=== PATIENT | male | born 1970 | race Caucasian/White ===

== ENCOUNTER 2017-07-06 21:17 | Emergency (ER) | payer BC ==
[2017-07-06 21:28] VITALS: BP 130/81; BMI 24.3
--- NOTE | 2017-07-06 21:43 | DR.GENAD ---
HPI - PCP Primary Care Physician: JULES - HPI Comment HPI Comment: GETTING WORSE. NO BM FOR 2 DAYS BUT HAD ONE BEFORE COMING. PAIN WAS IN THE FLANK AREA BUT IS NOW GOING TO RIGHT ABDOMEN. FELT FEVERISH AT HOME. NO DYSURIA OR HEMATURIA. - Complaint/Symptoms Chief Complaint Doctors Comments: RIGHT FLANK PAIN FOR 3 DAYS NOW RADIATING TO RIGHT LOWER ABDOMEN. Chief Complaint:: RIGHT SIDE PAIN COMES AND GOES GOTTEN WORSE TODAY, UNABLE TO HAVE BOWEL MOVEMENT X 2 DAYS NOT NORMAL PER PATIENT USUALLY BM DAILY. Self Treatment fo Chief Complaint: GAS X. PEPTO - Nurses notes reviewed Nurses Notes Review: Yes - Source History Provided: Patient - Mode of Arrival Mode of Arrival: Ambulatory - Timing Onset of Chief Complaint: 07/04/17 Came on: Suddenly - Duration Duration: Constant Duration: Days - Severity Severity: Moderate PMH - PMH Past Medical History: No Past Medical History: GERD Past Surgical History: Yes Past Surgical History Comment: ESOPHAGUS DILATED - Family History History of Family Medical Conditions: Yes Family Medical History: Diabetes Mellitus, Cancer, Heart Failure - Social History Does patient currently use any type of tobacco product: Yes (DIP) Have you used tobacco products in the last 12 months: Yes Type of Tobacco Use: DIP How many years tobacco product used: 30 Does any household member use tobacco: No Alcohol Use: Occasionally Do you use any recreational Drugs:: No Lives With: Spouse Lives Where: Home - infectious screening In the last 2 months have you had wt loss of >10#?: NO Have you had fever, night sweats or hemotysis?: No Have you traveled outside the country in the last 6 months?: No Isolation: Standard ROS - Review of Systems Constitutional: Fever Eyes: No Symptoms Reported ENTM: No Symptoms Reported. negative: Ear Pain, Nose Discharge, Nose Congestion , Throat Pain Respiratoy: No Symptoms Reported. negative: Productive Cough, Non-Productive Cough, Short of Breath, Wheezing, Hemoptysis Cardiovascular: No Symptoms Reported Gastrointestinal/Abdominal: Abdominal Pain (RT ABDOMEN.) Genitourinary: Pain (RT FLANK PAIN.). negative: Dysuria, Frequency, Hematuria Neurological: No Symptoms Reported Musculoskeletal: Back Pain (RT FLANK PAIN) Integumentary: No Symptoms Reported Hematologic/Lymphatic: No Symptoms Reported Endocrine: No Symptoms Reported All Other Systems: Reviewed and Negative PE - Vital Signs Vitals: Temperature 98.1 F Pulse Rate 93 Respiratory Rate 24 Blood Pressure 130/81 O2 Sat by Pulse Oximetry 95 - General Limitations: No Limitations General Appearance: Alert - Head Head Exam: Normal Inspection - Eyes Eye exam: Normal Appearance - ENT ENT Exam: Normal External Ear Exam External Ear Exam: Normal External Inspection TM/Canal Exam: Bilateral Normal Nose Exam: Normal Nose Exam Mouth Exam: Normal Inspection Throat Exam: Normal Inspection - Neck Neck Exam: Trachea Midline - Chest Chest Inspection: Symmetric Chest Wall Rise - Respiratory Respiratory Exam: Normal Lung Sounds Bilat Respiratory Exam: Bilateral Clear to Auscultation - Cardiovascular Cardiovascular Exam: Regular Rate, Normal Rhythm, Normal Heart Sounds - Abdominal Exam Abdominal Exam: Normal Bowel Sounds, Soft, Tenderness Abdominal Tenderness: RLQ - Extremities Extremities Exam: Normal Inspection - Back Back Exam: (R) CVA Tenderness - Neurologic Neurological Exam: Alert, Oriented X3 - Psychiatric Psychiatric Exam: Normal Affect, Normal Mood - Skin Skin Exam: Normal Color MDM - Additional Information Additional Information Obtained From: Family - Differential Diagnosis Differential Diagnosis: UTI, KIDNEY STONE, ABDOMINAL PAIN Course - Treatment Treatment: SEE ORDERS. - Education/Counseling Education/Counseling: Patient, Family, Education Educated On: Treatment, Diagnosis, Needs for Follow Up ROR - Labs Reviewed Laboratory Results Reviewed?: Yes Result Diagrams: 07/06/17 22:30 07/06/17 22:30 Laboratory: WBC 12.9 X10^3/uL (3.6-10.0) H 07/06/17 22:30 RBC 5.03 X10^6/uL (4.7-6.0) 07/06/17 22:30 Hgb 15.6 g/dL (13.5-18.0) 07/06/17 22:30 Hct 43.8 % (42.0-54.0) 07/06/17 22:30 MCV 87.0 fL (80.0-100.0) 07/06/17 22:30 MCH 30.9 pg (27.0-34.0) 07/06/17 22:30 MCHC 35.5 g/dL (33.0-35.0) H 07/06/17 22:30 RDW 12.4 % (11.6-16.5) 07/06/17 22:30 Plt Count 195 X10^3/uL (150.0-450.0) 07/06/17 22:30 MPV 7.7 fL (7.4-11.0) 07/06/17 22:30 Neut % (Auto) 86.6 % (42.0-75.0) H 07/06/17 22:30 Lymph % (Auto) 7.8 % (21.0-51.0) L 07/06/17 22:30 [place] % (Auto) 5.0 % (0.0-13.0) 07/06/17 22:30 Eos % (Auto) 0.3 % (0.9-2.9) L 07/06/17 22:30 Baso % (Auto) 0.3 % (0.2-1.0) 07/06/17 22:30 Neut # (Auto) 11.1 x10^3/uL (2.2-4.8) H 07/06/17 22:30 Lymph # (Auto) 1.0 X10^3/uL (1.3-2.9) L 07/06/17 22:30 [place] # (Auto) 0.6 x10^3/uL (0.3-0.8) 07/06/17 22:30 Eos # (Auto) 0.0 x10^3/uL (0.0-0.2) 07/06/17 22:30 Baso # (Auto) 0.0 X10^3/uL (0.0-0.1) 07/06/17 22:30 Absolute Nucleated RBC 0.1 /100WBC 07/06/17 22:30 Sodium 139 mmol/L (136-145) 07/06/17 22:30 Corrected Sodium 140 mmol/L (136-145) 07/06/17 22:30 Potassium 3.8 mmol/L (3.5-5.1) 07/06/17 22:30 Chloride 105 mmol/L (98-107) 07/06/17 22:30 Carbon Dioxide 24.2 mmol/L (21-32) 07/06/17 22:30 BUN 14 mg/dL (7-18) 07/06/17 22:30 Creatinine 1.07 mg/dL (0.70-1.30) 07/06/17 22:30 Est GFR (MDRD) Af Amer > 60 (>60) 07/06/17 22:30 Est GFR (MDRD) Non-Af > 60 (>60) 07/06/17 22:30 Glucose 161 mg/dL (65-99) H 07/06/17 22:30 Calcium 8.6 mg/dL (8.5-10.1) 07/06/17 22:30 Corrected Calcium TNP 07/06/17 22:30 Total Bilirubin 0.70 mg/dL (0.2-1.0) 07/06/17 22:30 AST 20 Units/L (15-37) 07/06/17 22:30 ALT 27 Units/L (12-78) 07/06/17 22:30 Alkaline Phosphatase 98 Units/L (46-116) 07/06/17 22:30 Total Protein 7.9 g/dL (6.4-8.2) 07/06/17 22: Albumin 4.3 g/dL (3.4-5.0) 07/06/17 22:30 Globulin 3.6 g/dL (2.5-4.5) 07/06/17 22:30 Albumin/Globulin Ratio 1.2 Ratio (1.1-2.1) 07/06/17 22:30 Amylase 46 Units/L (25-115) 07/06/17 22:30 Lipase 116 Units/L (73-393) 07/06/17 22:30 Specimen Type Clean catch urine 07/06/17 22:21 Urine Color Yellow (YELLOW) 07/06/17 22:21 Urine Appearance Slightly hazy (CLEAR) 07/06/17 22:21 Urine pH 5.0 (5.0 - 8.0) 07/06/17 22: Ur Specific [place] 1.025 (1.000-1.030) 07/06/17 22:21 Urine Protein 2+ (NEGATIVE) 07/06/17 22: Urine Glucose (UA) Negative (NEGATIVE) 07/06/17 22: Urine Ketones 2+ (NEGATIVE) 07/06/17 22: Urine Occult Blood 4+ (NEGATIVE) 07/06/17 22: Urine Nitrite Negative (NEGATIVE) 07/06/17 22: Urine Bilirubin Negative (NEGATIVE) 07/06/17 22:21 Urine Urobilinogen Normal (NORMAL) 07/06/17 22:21 Ur Leukocyte Esterase 1+ (NEGATIVE) 07/06/17 22:21 Urine RBC 10-20 /HPF (NONE SEEN) 07/06/17 22:21 Urine WBC 0-2 /HPF (NONE SEEN) 07/06/17 22:21 Ur Squamous Epith Cells Few /HPF (NEGATIVE) 07/06/17 22:21 Urine Bacteria Trace /HPF (NEGATIVE) 07/06/17 22:21 Urine Mucus Moderate /HPF (NEGATIVE) 07/06/17 22:21 Ur Culture Indicated? No/not indicated 07/06/17 22:21 - XRAY XRAY Interpreted by: Radiologist XRAY Findings: REPORT DISCUSS WITH PATIENT. - Diagnosis Discharge Problem: Kidney stone on right side, Right flank pain - Discharge Plan Disposition: HOME, SELF-CARE Condition: Stable Prescriptions: Tamsulosin HCl [Flomax] 0.4 mg PO DAILY PRN #10 cap PRN Reason: Tramadol HCl 50 mg PO Q8H PRN #15 tablet PRN Reason: - Follow ups/Referrals Follow ups/Referrals: Jacoby Paiz [Primary Care Provider] - 3 days NEELIMA MONROY [CONSULTING PHYSICIAN] - 07/07/17 - Instructions Instructions: Kidney Stones, [id number], Flank Pain, Adult, [id number] Additional Instructions: RETURN TO ED IF WORSE.
[2017-07-06 22:36] LABS: BILIRUBIN,URINE NEGATIVE (NEGATIVE); BLOOD/HEMOGLOBIN,URINE 4+ (NEGATIVE); GLUCOSE, URINE NEGATIVE (NEGATIVE); KETONES,URINE 2+ (NEGATIVE); LEUKOCYTE ESTERASE ,URINE 1+ (NEGATIVE); NITRITES,URINE NEGATIVE (NEGATIVE); PROTEIN,URINE 2+ (NEGATIVE); UROBILINOGEN,URINE NORMAL (NORMAL)
[2017-07-06 22:48] LABS: APPEARANCE,URINE SLIGHTLY HAZY (CLEAR); COLOR,URINE YELLOW (YELLOW)
[2017-07-06 22:50] LABS: BACTERIA,URINE TRACE /HPF (NEGATIVE); MUCUS,URINE MODERATE /HPF (NEGATIVE); SQUAMOUS EPITHELIAL CELL,UR FEW /HPF (NEGATIVE)
[2017-07-06 22:54] LABS: BASOPHILS % (AUTO) 0.3 % (0.2-1.0); EOSINOPHILS % (AUTO) 0.3 % (0.9-2.9); HEMATOCRIT 43.8 % (42.0-54.0); HEMOGLOBIN 15.6 g/dL (13.5-18.0); LYMPHOCYTES % (AUTO) 7.8 % (21.0-51.0); MEAN CORPUSCULAR HEMOGLOBIN 30.9 pg (27.0-34.0); MEAN CORPUSCULAR HGB CONC 35.5 g/dL (33.0-35.0); MEAN PLATELET VOLUME 7.7 fL (7.4-11.0); MONOCYTES # (AUTO) 0.6 x10^3/uL (0.3-0.8); NEUTROPHILS # (AUTO) 11.1 x10^3/uL (2.2-4.8); NEUTROPHILS % (AUTO) 86.6 % (42.0-75.0); PLATELET COUNT 195 X10^3/uL (150.0-450.0); RED BLOOD COUNT 5.03 X10^6/uL (4.7-6.0); RED CELL DISTRIBUTION WIDTH 12.4 % (11.6-16.5); WHITE BLOOD COUNT 12.9 X10^3/uL (3.6-10.0)
[2017-07-06 23:02] LABS: ALANINE AMINOTRANSFERASE 27 Units/L (12-78); ALBUMIN 4.3 g/dL (3.4-5.0); ALKALINE PHOSPHATASE 98 Units/L (46-116); AMYLASE 46 Units/L (25-115); ASPARTATE AMINO TRANSFERASE 20 Units/L (15-37); BLOOD UREA NITROGEN 14 mg/dL (7-18); CALCIUM 8.6 mg/dL (8.5-10.1); CARBON DIOXIDE 24.2 mmol/L (21-32); CHLORIDE 105 mmol/L (98-107); COR NA(FOR HYPERGLY) 140 mmol/L (136-145); CREATININE 1.07 mg/dL (0.70-1.30); LIPASE 116 Units/L (73-393); SODIUM 139 mmol/L (136-145); TOTAL PROTEIN 7.9 g/dL (6.4-8.2); eGFR BLACK RACES > 60 (>60); eGFR NON BLACK RACES > 60 (>60)
--- NOTE | 2017-07-06 23:08 | CT ---
CT abdomen and pelvis without contrast Indication: Right flank pain Technique: Helical images through the abdomen and pelvis without contrast. Coronal and sagittal refor mats provided. Findings: Limited images through the lower chest shows no acute abnormality. Review of bone windows s hows mild spine degenerative change. Abdomen: The gallbladder, liver, spleen, pancreas, adrenal glands, stomach and small bowel are normal . There is no acute colonic abnormality. The appendix is normal. Vasculature is free of plaque. The l eft kidney is normal. There is mild right hydroureteronephrosis with stone in the proximal right uret er near the ureteropelvic junction. This is best seen on axial image 38 and coronal image 25, measuri ng maximally 5 mm. Pelvis: The urinary bladder, rectum and prostate gland are normal. Impression: 1. Mild right hydroureteronephrosis with stone in the proximal right ureter near the ureterovesical j unction. 2. No other acute abnormality. Reported By:
[2017-07-06] MEDS ORDERED: ULTRAM PO ONE (23:34)
[2017-07-06] MEDS ORDERED: FLOMAX PO ONE (23:35)
[2017-07-06] MEDS ORDERED: TORADOL 60 MG VIAL IM ONE (23:38)
[2017-07-06] MEDS ORDERED: TORADOL 60 MG VIAL ONE (23:42)
[2017-07-06] MEDS ORDERED: ULTRAM ONE (23:43)
== END 2017-07-07 00:08 | disposition home or self-care (01) ==
LOC: ER 21:31
DX: N28.9 Disorder of kidney and ureter, unspecified (principal); R10.84 Generalized abdominal pain
CPT/HCPCS: 36415; 74176; 80053; 81001; 82150; 83690; 85025; 96372; 99283; 99284; J1885

== ENCOUNTER 2017-07-10 15:25 | Emergency (ER) | payer BC ==
[2017-07-10 15:33] VITALS: BP 131/83; BMI 24.3
[2017-07-10] MEDS ORDERED: NS 1000 ML 1,000 ML IV ONE (16:26)
--- NOTE | 2017-07-10 16:26 | DR.GENAD ---
HPI - PCP Primary Care Physician: DR. VICENTE - Complaint/Symptoms Chief Complaint Doctors Comments: Patient was diagnosed with a 5mm ureteropelvic junction stone associated with mild right hydroureteronephrosis with stone in the proximal right ureter near the ureterovesical junction. He was given flomax and analgesic and advised to follow up with primary care physician Chief Complaint:: PT STATES "WE CAME ON 07/06 AND I WAS DIAGNOSED WITH A KIDNEY STONE. I HAVE TRIED EVERYTHING AND IT STILL HASN'T PASSED" - Source History Provided: Patient, Family Member - Mode of Arrival Mode of Arrival: Ambulatory - Timing Onset of Chief Complaint: 07/05/17 PMH - PMH Past Medical History: Yes Past Medical History: Kidney Stones Past Medical History Comment: ACID REFLUX Past Surgical History: Yes Surgical History: Other Past Surgical History Comment: ESOPHAGEAL STRETCH - Family History History of Family Medical Conditions: Yes Family Medical History: Diabetes Mellitus, Cancer, Hypertension - Social History Does patient currently use any type of tobacco product: No Have you used tobacco products in the last 12 months: No Type of Tobacco Use: None Does any household member use tobacco: No Alcohol Use: None Do you use any recreational Drugs:: No Lives With: Spouse Lives Where: Home - infectious screening Have you traveled outside the country in the last 6 months?: No Isolation: Standard ROS - Review of Systems Eyes: No Symptoms Reported ENTM: No Symptoms Reported Respiratoy: No Symptoms Reported Cardiovascular: No Symptoms Reported Gastrointestinal/Abdominal: No Symptoms Reported Genitourinary: No Symptoms Reported Neurological: No Symptoms Reported Musculoskeletal: No Symptoms Reported Integumentary: No Symptoms Reported Hematologic/Lymphatic: No Symptoms Reported, Anemia Psychiatric: No Symptoms Reported All Other Systems: Reviewed and Negative PE - Vital Signs Vitals: Temperature 100.0 F Pulse Rate 83 Respiratory Rate 24 Blood Pressure 131/83 O2 Sat by Pulse Oximetry 97 - General Limitations: No Limitations General Appearance: Alert, In No Apparent Distress - Head Head Exam: Normal Inspection, Atraumatic - Eyes Eye exam: Normal Appearance, PERRL, EOMI - ENT ENT Exam: Normal Exam, Normal Oropharynx External Ear Exam: Normal External Inspection TM/Canal Exam: Bilateral Normal Nose Exam: Normal Nose Exam Mouth Exam: Normal Inspection Throat Exam: Normal Inspection - Neck Neck Exam: Normal Inspection - Chest Chest Inspection: Normal Inspection - Respiratory Respiratory Exam: Normal Lung Sounds Bilat Respiratory Exam: Bilateral Clear to Auscultation - Cardiovascular Cardiovascular Exam: Regular Rate, Normal Rhythm - Abdominal Exam Abdominal Exam: Normal Inspection, Normal Bowel Sounds Abdominal Tenderness: negative: RUQ, RLQ, LUQ, LLQ, Epigastrium, Suprapubic, Diffuse, Mild, Moderate, Severe, Other - Extremities Extremities Exam: Normal Inspection, Full ROM - Back Back Exam: (L) CVA Tenderness - Neurologic Neurological Exam: Alert, Oriented X3, CN II-XII Intact - Psychiatric Psychiatric Exam: Normal Affect - Skin Skin Exam: Warm, Dry, Intact - Diagnosis Discharge Problem: Right Hydroureteronephrosis - Discharge Plan Condition: Good - Follow ups/Referrals Follow ups/Referrals: Jacoby Vicente [Primary Care Provider] - 3 days - Instructions
[2017-07-10] MEDS ORDERED: DEMEROL INJ IVP ONE (16:27)
[2017-07-10] MEDS ORDERED: NS 1000 ML 1,000 ML ONE (16:31)
[2017-07-10] MEDS ORDERED: DEMEROL INJ ONE (16:32)
== END 2017-07-10 17:25 | disposition home or self-care (01) ==
LOC: ER 15:25
DX: N13.39 Other hydronephrosis (principal)
CPT/HCPCS: 96365; 96374; 96375; 99282; 99283; A4222; J2175